=== PATIENT | male | born 1975 ===

== ENCOUNTER 2018-01-17 01:28 | Emergency (ER) | payer OTHER ==
--- NOTE | 2018-01-17 01:41 | C.PDOC ---
History Of Present Illness Pt presents with almost diffuse rash worsening over the lst 3 days. Pt has traveled to [place] twice over the last week. No f/c/n/v. Speaking in complete sentences. Tolerating own secretions Time Seen by Provider: 01/17/18 01:41 Chief Complaint (Nursing): Abnormal Skin Integrity History Per: Patient History/Exam Limitations: no limitations Onset/Duration Of Symptoms: Days Current Symptoms Are (Timing): Still Present Location Of Injury: Right: Back, Forearm, Left: Back, Forearm, Anterior: Chest, Forearm, Posterior: Forearm Quality Of Symptoms: Itching Severity: Mild Pain Scale Rating Of: 3 Recent travel outside of the [place]: No Additional History Per: Patient Past Medical History Reviewed: Historical Data, Nursing Documentation, Vital Signs Vital Signs: Last Vital Signs Temp 98.8 F 01/17/18 01:37 Pulse 104 H 01/17/18 01:37 Resp 20 01/17/18 01:37 BP 154/96 H 01/17/18 01:37 Pulse Ox 98 01/17/18 01:54 Family History: States: No Known Family Hx - Social History Hx Alcohol Use: No Hx Substance Use: No - Immunization History Hx Tetanus Toxoid Vaccination: No Hx Influenza Vaccination: No Hx Pneumococcal Vaccination: No Review Of Systems Constitutional: Negative for: Fever, Chills ENT: Negative for: Throat Pain Cardiovascular: Negative for: Chest Pain Respiratory: Negative for: Shortness of Breath, Wheezing Gastrointestinal: Negative for: Nausea, Vomiting, Abdominal Pain Skin: Positive for: Rash, Lesions Neurological: Negative for: Weakness Psych: Negative for: Anxiety Physical Exam - Physical Exam Appears: Non-toxic, No Acute Distress Skin: Warm, Dry, Rash (both arms, back , possible urticarial vs insect bites) Oral Mucosa: Moist Throat: No Erythema, No Drooling Neck: Supple Chest: Symmetrical Back: No CVA Tenderness Extremity: Normal ROM Extremity: Bilateral: Atraumatic Neurological/Psych: Oriented x3 Gait: Steady ED Course And Treatment O2 Sat by Pulse Oximetry: 98 Pulse Ox Interpretation: Normal Reevaluation Time: 03:13 Reassessment Condition: Improved Disposition Counseled Patient/Family Regarding: Studies Performed, Diagnosis, Need For Followup, Rx Given - Disposition Referrals: [facility] [Outside] [facility] [Outside] Disposition: HOME/ ROUTINE Disposition Time: 01:41 Condition: FAIR Additional Instructions: Please return if symptoms recur. ALso use benadryl, pepcid and claritin Prescriptions: Epinephrine [Epipen] 0.3 mg IJ ONCE PRN #2 auto.injct PRN Reason: Anaphylaxis Prednisone [Deltasone] 20 mg PO DAILY #5 tablet Instructions: Hives (DC) Forms: [employer] (Syriac) - Clinical Impression Clinical Impression: Skin irritation, Urticaria, Bed bug bite
[2018-01-17] MEDS ORDERED: Sodium Chloride 0.9% 1,000 ML IV ONE (01:50)
[2018-01-17] MEDS ORDERED: DiphenhydrAMINE 50 mg/ml Inj IVP STA (01:50)
[2018-01-17] MEDS ORDERED: DiphenhydrAMINE 50 mg/ml Inj ONE (02:07)
[2018-01-17 03:28] VITALS: BP 136/94; PULSE 83; RESP 18; TEMP 98.5; O2SAT 100
== END 2018-01-17 03:48 | disposition home or self-care (01) ==
LOC: C.ER 01:28
DX: L50.9 Urticaria, unspecified (principal); S40.862A Insect bite (nonvenomous) of left upper arm, initial encounter; S40.861A Insect bite (nonvenomous) of right upper arm, initial encounter; W57.XXXA Bitten or stung by nonvenomous insect and other nonvenomous arthropods, initial encounter; Y92.9 Unspecified place or not applicable
CPT/HCPCS: 96361; 96374; 96375; 99284; J1200; J2930; J7040